=== PATIENT | male | born 1970 | race African-American/Black ===

== ENCOUNTER 2020-10-06 21:16 | Emergency (ER) | payer OTHER, SELFPAY ==
--- NOTE | ~2020-10-06 | XR_ITS ---
XR elbow RT min 3V DATE: 10/06/2020 22:00 INDICATION: Right elbow pain. popping sound TECHNIQUE: 4 views COMPARISON: None FINDINGS: Dorsal olecranon process spurring and chronic bony ossicles. A linear lucency at the base o f the spur may indicate fracture at the base of the spur. Otherwise no fracture or dislocation or joint effusion. No periosteal reaction or bone destruction. IMPRESSION: Dorsal olecranon process spurring and ossicles. Possible nondisplaced fracture at the bas e of the olecranon process spur Reviewed, dictated and finalized at location A. IMPRESSION: Dorsal olecranon process spurring and ossicles. Possible nondisplac ed fracture at the base of the olecranon process spur
[2020-10-06 21:35] VITALS: BP 149/88; PULSE 60; RESP 20; TEMP 36.1; O2SAT 97
[2020-10-06] MEDS: DEXAMETHASONE 4 MG TABLET 12 MG PO (21:48)
[2020-10-06] MEDS: KETOROLAC (*BKC) 60 MG/2 ML VIAL IM (21:48)
--- NOTE | 2020-10-06 22:09 | ED.EXTPRO ---
HPI - Extremity Problem General Source: patient and family Mode of arrival: ambulatory Limitations: no limitations History of Present Illness HPI Narrative: Patient comes in with complaints of pain in his right elbow. he noticed his right elbow hurting after doing some heavy work. This happened today while he was at his regular job. Discomfort has been mildly severe at the olecranon area. This has been ongoing since about 4:30 p.m. today. Elbow seems to be more uncomfortable when he moves it. Nothing has made this better at home. Related Data Home Medications Medication Instructions Recorded Confirmed levothyroxine 125 mcg PO DAILY 10/06/20 10/06/20 testosterone enanthate 50 mg SUBCUT WEEKLY 10/06/20 10/06/20 Allergies Allergy/AdvReac Type Severity Reaction Status Date / Time No Known Allergies Allergy Verified 10/06/20 21:37 Review of Systems Constitutional: Constitutional: Reports no additional constitutional complaints Eyes: Eyes: Reports no additional eye complaints ENT: Reports system reviewed and no additional complaints, except as documented Cardiovascular: Cardiovascular: Reports no additional cardiovascular complaints Respiratory: Respiratory: Reports no additional respiratory complaints Gastrointestinal: Gastrointestinal: Reports no additional gastrointestinal complaints Genitourinary: Genitourinary: Reports no additional male genitourinary complaints Musculoskeletal: Musculoskeletal: Reports no additional musculoskeletal complaints Integumentary/Breasts: Skin/Breast: Reports system reviewed and no additional complaints, except as docu Neurologic: Reports system reviewed and no additional complaints, except as documented Psychiatric: Psychiatric: Reports no additional psychiatric complaints Endocrine: Endocrine: Reports no additional endocrine complaints Hematologic/Lymphatic: Hematologic/Lymphatic: Reports no additional hematologic/lymphatic complaints Allergic/Immunologic: Allergic/Immunologic: Reports no additional allergic/immunologic complaints [facility] Past Medical History Medical History Hypogonadism Hypothyroid Surgical History Surgical History No significant past surgical history Family History Family History Mother Dementia Diabetes mellitus type 2, controlled Social History Social History Smoking status: Never smoker Alcohol intake: never Gender identity (if verbalized by the patient): Male Exam Const: General: healthy appearing, no acute distress and alert Orientation/consciousness: patient oriented x3 HENMT: Head: normal to inspection Ears: external ears normal and TM's normal bilaterally General nose exam: Normal external nose present Face and sinus: normal facial exam Mouth: Yes Normal oral and palatal mucosa present Throat: posterior oropharynx normal Eyes: Conjunctivae: conjunctivae normal Neck: Neck: normal visual inspection and no lymphadenopathy Chest: Chest palpation & inspection: normal inspection of the chest Resp: Effort & Inspection: normal respiratory effort Auscultation: clear to auscultation bilaterally Cardio: Rate: regular rate Rhythm: regular rhythm GI: GI Palp: Yes Soft to palpation ( nontender) Skin: General skin exam: normal color Neuro: General: patient oriented x3 and moves all extremities Extrem: General: normal to inspection Psych: Appearance: grossly normal Mental Status: mental status grossly normal Course Course Emergency Course: plain films were reviewed of his right forearm. He was found to have a fracture of a spur type process at the tip of the in the olecranon. he was placed in sling, he was discharged with instructions to follow-up with his family doctor in a few days. Vital Signs Vital signs:
[2020-10-06 22:45] VITALS: BP 130/75; PULSE 84; RESP 18; O2SAT 99
== END 2020-10-06 22:50 | disposition home or self-care (01) ==
PROVIDERS: Emergency Provider Emergency Medicine
DX: M25.521 Pain in right elbow (principal)
CPT/HCPCS: 73080; 96372; 99283; A4565; J1885; J8540